=== PATIENT | male | born 1985 | race Caucasian/White ===

== ENCOUNTER 2018-03-05 07:23 | Emergency (ER) | payer BC, OTHER ==
[2018-03-05 07:41] VITALS: BP 136/80
--- NOTE | 2018-03-05 08:05 | ED ---
Throat Pain/Nasal Congestion - HPI Summary HPI Summary: 32 yr old male with sore throat. Onset of symptoms a couple of days ago. The patient has had sore throat mainly, but today has begun to get some clear nasal discharge as well. He has had some fever. No Coughing or SOB. - History of Current Complaint Chief Complaint: UCRespiratory Time Seen by Provider: 03/05/18 07:38 - Allergies/Home Medications Allergies/Adverse Reactions: Allergies Allergy/AdvReac Type Severity Reaction Status Date / Time No Known Allergies Allergy Verified 03/05/18 07:37 Home Medications: Home Medications NK [No Home Medications Reported] 03/05/18 [History Confirmed 03/05/18] PMH/Surg Hx/FS Hx/Imm Hx Respiratory History: Reports: Hx Sleep Apnea - ??? GI History: Reports: Hx Gastroesophageal Reflux Disease - ON MEDICATION FOR Musculoskeletal History: Reports: Hx Arthritis - SHOULDER-RIGHT Sensory History: Reports: Hx Contacts or Glasses - GLASSES Denies: Hx Hearing Aid Opthamlomology History: Reports: Hx Contacts or Glasses - GLASSES - Surgical History Surgery Procedure, Year, and Place: RIGHT SHOULDER SURGERY-2001. LIPOMA-RIGHT SIDE OF CHEST REMOVED- 2 YEARS AGO Hx Anesthesia Reactions: No Infectious Disease History: No Infectious Disease History: Denies: Traveled Outside the [place] in Last 30 Days - Family History Known Family History: Positive: None - Social History Occupation: Employed Full-time Alcohol Use: Weekly Alcohol Amount: 1 drink/week Substance Use Type: Reports: None Smoking Status (MU): Never Smoked Tobacco Review of Systems Positive: Fever Positive: Sore Throat, Nasal Discharge All Other Systems Reviewed And Are Negative: Yes Physical Exam Triage Information Reviewed: Yes Vital Signs On Initial Exam: Initial Vitals Temp Pulse Resp BP Pulse Ox 98.8 F 71 16 136/80 100 03/05/18 07:38 03/05/18 07:38 03/05/18 07:38 03/05/18 07:38 03/05/18 07:38 Vital Signs Reviewed: Yes Appearance: Positive: Well-Appearing, No Pain Distress Skin: Positive: Warm, Skin Color Reflects Adequate Perfusion Head/Face: Positive: Normal Head/Face Inspection Eyes: Positive: EOMI ENT: Positive: Pharyngeal erythema, TMs normal. Negative: Nasal congestion Neck: Positive: Supple, Nontender Respiratory/Lung Sounds: Positive: Clear to Auscultation, Breath Sounds Present Cardiovascular: Positive: RRR. Negative: Murmur Abdomen Description: Positive: Nontender Musculoskeletal: Positive: Strength/ROM Intact Neurological: Positive: Sensory/Motor Intact, Alert, Oriented to Person Place, Time, CN Intact II-III Psychiatric: Positive: Normal - [place] Coma Scale Best Eye Response: 4 - Spontaneous Best Motor Response: 6 - Obeys Commands Best Verbal Response: 5 - Oriented Coma Scale Total: 15 Diagnostics - Vital Signs Vital Signs Temp Pulse Resp BP Pulse Ox 03/05/18 07:38 98.8 F 71 16 136/80 100 - Laboratory Lab Results: Lab Results 03/05/18 Range/Units 07:41 Group A Strep Rapid Negative (Negative) Lab Statement: Any lab studies that have been ordered have been reviewed, and results considered in the medical decision making process. EENT Course/Dx - Diagnoses Provider Diagnoses: Upper respiratory infection Discharge - Sign-Out/Discharge Documenting (check all that apply): Discharge - Discharge Plan Condition: Good Disposition: HOME Patient Education Materials: Upper Respiratory Infection (ED) Referrals: Stephon Babcock MD [Primary Care Provider] - - Billing Disposition and Condition Condition: GOOD Disposition: HOME
== END 2018-03-05 08:01 | disposition home or self-care (01) ==
LOC: UCCORT 07:23
DX: J06.9 Acute upper respiratory infection, unspecified (principal)
CPT/HCPCS: 87651; 99211; G0463

== ENCOUNTER → 2018-10-31 06:39 | Day surgery (SDC) | payer OTHER ==
[~2018-10-31 06:39] MED LIST: Acetaminophen TAB* 325 MG PO PRN; Buffered Lidocaine 0.9% SYRIN* 5 ML/SYR SYRINGE INTRADERM ONE; Bupivacaine 0.25% SDV PF* 10 ML VIAL INJ ONE; Dexamethasone IV* 4 MG/ML 1 ML (4 MG) IV SLOW PU ONE; Dexamethasone IV* 4 MG/ML 1 ML (4 MG) ONE; DiMENhydriNATE IV* 50 MG/ML VIAL IV PUSH PRN; Famotidine IV* 10 MG/ML 2 ML (20 mg) IV ONE; Famotidine IV* 10 MG/ML 2 ML (20 mg) ONE; Ketorolac INJ* 30 MG/ML 1 ML VIAL IV PRN; Ketorolac INJ* 30 MG/ML 1 ML VIAL ONE; Lactated Ringers 1000 ML Bag* 1,000 ML IV SCH; Lidocaine 1% MPF wEPI 200,000* 30 ML SDV ONE; Lidocaine 2% PF * 5 ML VIAL ONE; Midazolam* 1 MG/ML 5 ML VIAL (5 MG) ONE; Naloxone* 0.4 MG/ML 1 ML VIAL IV PRN; Ondansetron INJ* 2 MG/ML VIAL ONE; PROCHLORPERAZINE INJ 5 MG/ML 2 ML VIAL IV PRN; Propofol* 10 MG/ML 20 ML BTL ONE; ceFAZolin 2 GM PREMIX in ORs 2 GM/50 ML BAG IVPB ONE; fentaNYL* 50 MCG/ML 2 ML VIAL (100 MCG VIAL) IV PRN; fentaNYL* 50 MCG/ML 5 ML VIAL (250 MCG VIAL) ONE; oxyCODONE/Acetamin 5/325 MG* TAB ONE; oxyCODONE/Acetamin 5/325 MG* TAB PO PRN
[2018-10-31 14:17] VITALS: BP 149/81
--- NOTE | 2018-11-01 02:14 | OP ---
DATE OF OPERATION: 10/31/18 - [facility] DATE OF : 81 SURGEON: Oziel Stewart MD SNAKE CHARMER: LAI Higgins. An assistant tennis coach was needed for the entirety of the procedure to aid in positioning of the arm and retraction. ANESTHESIOLOGIST: Dr. Dyson. ANESTHESIA: General. PRE-OP DIAGNOSIS: Right peripheral triangular fibrocartilage complex tear and tearing of the deep foveal fibers. POST-OP DIAGNOSIS: Right peripheral triangular fibrocartilage complex tear and tearing of the deep foveal fibers. OPERATIVE PROCEDURE: 1. Right wrist arthroscopic TFCC debridement and partial synovectomy. 2. Right open TFCC repair. INDICATIONS: Gaetano has had ulnar-sided wrist pain which has been with activity and has been chronic. We had talked about risks and benefits. He had an MR arthrogram and I thought he had a peripheral TFCC tear with some tearing off of the ulnar collateral ligament off of its origin near the ulnar styloid as well as some tearing of the foveal fibers. He under-stood the risk of stiffness, infection, and other complications. He wanted to proceed. ESTIMATED BLOOD LOSS: 2 mL. COMPLICATIONS: None. FINDINGS: See above and below. DESCRIPTION OF PROCEDURE: Gaetano was seen in the preoperative holding area. The correct site, side, and procedure were identified. We came back to the operating room. The arm was prepped and draped in the usual fashion. A time- out was performed. The arm was placed in the Acumed traction tower and inline traction was applied. The arm was exsanguinated with the Esmarch and the tourniquet to 250 mmHg. I created a 3-4 portal in the standard fashion with an 11 blade followed by a mosquito and then the blunt trocar. The camera was introduced. The radial-sided structures all looked good. We came ulnarly and there were some synovitis dorsally and palmarly over the ulnocarpal ligaments. There was no radial-sided tearing that I could clearly see. There was may be a little bit of delamination of the palmar, radial, ulnar ligament. I brought my shaver in and I cleaned up the frayed edges. I carried out a partial synovectomy both dorsally and palmarly. There was some fraying of the ulnar carpal ligament and so I brought in the radiofrequency ablator and I cauterized the ulnar carpal ligament later there to try to seal off any longitudinal fissures. At this point, the wrist was looking quite good, there was nothing really further that I could do with the scope, so with the debridement completed I removed and we handed off all of the arthroscopic equipment. I then place the hand palm down with the forearm pronated and then I made a longitudinal incision over the 5th dorsal compartment. I did not incorporate the 6R portal that I had created prior to that in standard fashion. The full thickness flap was raised off of the extensor retinaculum. The 5th dorsal compartment was then released and the EDM tendon was retracted out of the way. The floor of the 5th dorsal compartment was incised longitudinally to open the DRUJ and then this was teed back transversely, ulnarly, distally, just proximal to the TFCC fibers taking care to preserve the dorsal, radial, ulnar ligament. I then made a separate arthrotomy distal to the TFCC fibers to expose the proximal aspect of the triquetrum and the distal TFCC. There was quite a bit of degenerative tissue on the undersurface of the TFCC out near the foveal attachment. This was all debrided with a rongeur. Ultimately, there was a pretty sizable foveal tear. Once I had everything debrided and cleaned and clearly visualized, I took my curette in and I took the distal ulna back to a healthy bleeding bone, debriding off the degenerative tissue. I then used a 0.62 K wire to drill 2 bone tunnels through the distal aspect of the ulna, starting in the fovea and went exiting out more dorsally and one exiting out the shaft more palmarly. Both of these were brought out proximal about a centimeter proximal to the fovea. The Hewson suture passer was used to pass the suture tail out the more palmar bone tunnel and then the 2-0 FiberWire suture was whipstitched multiple times up into the TFCC and then the needle was cut off the other tail of the FiberWire and the other tail was passed down the more dorsal tunnel. I then was able to pull down with maximum tension and tie off the FiberWire the bony bridge of the ulna. There was at least a centimeter bone bridge between the 2 bone tunnels. This brought the TFCC very nicely down to the fovea. I had created a separate ulnar incision over the distal ulna and extending past it distal to the styloid and I had gone down and I had created full thickness flaps off the periosteum. The dorsal, ulnar, sensory nerves were taken palmarly and protected throughout the case. The FiberWire was tied off subperiosteally. After I had tied off the FiberWire, I closed the periosteum over the knot with 3-0 Vicryl suture. Lastly, I thought he had delaminated the origin of the ulnar collateral ligament near the styloid and so I exposed that area and I debrided sharply the degenerative tissue in that area. I then placed one Mini Mitek suture anchor just adjacent to the ulnar styloid and away from my prior bone tunnel so as not to disrupt my FiberWire suture. A Mini Mitek suture anchor was placed and then I whipstitched up into the ulnar collateral ligament and then tied this off flush down to bone by pulling tension on the other limb of my Ethibond suture attached to the Mitek anchor. This provided excellent apposition of the tissue down to bone. At this point, the TFCC was looking very nice. I left the EDM tendon transposed and I closed the capsule with 3-0 Ethibond suture very tightly. The skin was closed with 4-0 Monocryl suture. Two portal sites were closed with a Steri-Strip. Steri-strips were placed over the incisions as well. Marcaine 0.25% plain was infiltrated all around the area. Dressings were applied and a sugar tong splint with the forearm in neutral rotation was applied. Tourniquet was deflated, the hand pinked up immediately and he was taken to the recovery room in stable condition. [id number]/[facility] #: [id number] AVERY
== END | disposition home or self-care (01) ==
LOC: OR 06:39
PROVIDERS: ATTEND Orthopaedic Surgery Hand Surgery
DX: S63.591A Other specified sprain of right wrist, initial encounter (principal); S66.811A Strain of other specified muscles, fascia and tendons at wrist and hand level, right hand, initial encounter; X58.XXXA Exposure to other specified factors, initial encounter; Y93.9 Activity, unspecified; Y92.89 Other specified places as the place of occurrence of the external cause; Y99.0 Civilian activity done for income or pay; I10 Essential (primary) hypertension; E78.5 Hyperlipidemia, unspecified; G47.33 Obstructive sleep apnea (adult) (pediatric)
CPT/HCPCS: A9270-GY; C1713; C1776; J0690; J1100; J1885; J2001; J2250; J2405; J2704; J3010; J3490